=== PATIENT | female | born 1990 | race African-American/Black ===

== ENCOUNTER 2017-04-18 21:32 | Emergency (ER) | payer SELFPAY ==
[~2017-04-18] VITALS: Ht 167.6 cm; Wt 52.0 kg
[~2017-04-18 21:32] MED LIST: DIFL150T PO
[2017-04-18 21:33] VITALS: BP 118/81; PULSE 82; RESP 16; TEMP 98.9; O2SAT 100
[2017-04-18] MEDS ORDERED: SODIUM CHLOR 0.9% 1000 ML INJ 1,000 ML IV SCH (23:18)
[2017-04-18] MEDS ORDERED: SODIUM CHLORIDE 0.9% FLUSH 10 ML FLUSH IV FLUSH PRN (23:30)
[2017-04-18] MEDS ORDERED: methylPREDNISolone SOD SUCC 125 MG/2 ML VIAL IV PUSH ONE (23:30)
[2017-04-18] MEDS ORDERED: diphenhydrAMINE HCL 50 MG/ML VIAL IVP ONE (23:30)
[2017-04-18] MEDS ORDERED: FAMOTIDINE 20 MG/2 ML VIAL IV PUSH ONE (23:30)
--- NOTE | 2017-04-18 23:44 | PD ---
HPI Chief Complaint: Allergic/Adverse Reaction Time Seen by Provider: 23:14 Travel History International Travel<30 days: No Contact w/Intl Traveler<30days: No Traveled to known affect area: No History of Present Illness HPI Patient is a 27-year-old female presented to the emergency department for evaluation of possible allergic reaction. Patient reported that she ate chicken wings from a seafood restaurant last night and since that time she has had hives developing on her face, arms, legs and chest. She states it has gotten progressively worse and this evening she feels as if it is coming up onto her neck. She states when she coughs she can taste blood. She denies any dysphasia, shortness of breath, wheezing. She denies any known allergens. She denies any history of anaphylaxis. Symptom onset is gradual, there are no alleviating or exacerbating factors. [facility] Past Medical History Medical History: Denies Significant Hx Diminished Hearing: No Genitourinary: Yes (RECURRENT YEAST INFECTION APPROX. 1/MONTH) Tetanus Vaccination: Unknown Influenza Vaccination: No ?: Not : 0 Para: 0 Past Surgical History Surgical History: No Previous Surgery Social History Alcohol Use: No Tobacco Use: No Substance Use: No Allergies-Medications (Allergen,Severity, Reaction): Coded Allergies: No Known Allergies (Unverified , 06/06/14) Reported Meds & Prescriptions Reported Meds & Active Scripts Active Prednisone 50 Mg Tab 50 Mg PO DAILY 5 Days Ranitidine (Ranitidine HCl) 150 Mg Tab 150 Mg PO BID Review of Systems Except as stated in HPI: all other systems reviewed are Neg HENT: Positive: Sore Throat Skin: Positive Rash, Positive Itching, Positive Hives Physical Exam Narrative GENERAL: Well-developed, well-nourished, alert -[place] female. Presenting in no acute distress. SKIN: Warm and dry. Hives on face, arms, legs and chest. Lips are edematous HEAD: Atraumatic. Normocephalic. EYES: Pupils equal and round. No scleral icterus. No injection or drainage. ENT: No nasal bleeding or discharge. Mucous membranes pink and moist. Uvula is midline, airway is patent, mild erythema noted posterior pharynx. NECK: Trachea midline. No JVD. CARDIOVASCULAR: Regular rate and rhythm. RESPIRATORY: No accessory muscle use. Clear to auscultation. Breath sounds equal bilaterally. No stridor noted, no wheezes noted GASTROINTESTINAL: Abdomen soft, non-tender, nondistended. Hepatic and splenic margins not palpable. MUSCULOSKELETAL: Extremities without clubbing, cyanosis, or edema. No obvious deformities. NEUROLOGICAL: Awake and alert. No obvious cranial nerve deficits. Motor grossly within normal limits. Five out of 5 muscle strength in the arms and legs. Normal speech. PSYCHIATRIC: Appropriate mood and affect; insight and judgment normal. Data Data Last Documented VS Vital Signs Date Time Temp Pulse Resp B/P (MAP) Pulse Ox O2 Delivery O2 Flow Rate FiO2 04/19/17 01:22 04/19/17 00:30 99 Room Air 04/18/17 21:33 98.9 82 16 Orders Orders Basic Metabolic Panel (Bmp) (04/18/17 23:18) Complete Blood Count With Diff (04/18/17 23:18) Ecg Monitoring (04/18/17:18) Iv Access Insert/Monitor (04/18/17:18) Oximetry (04/18/17 23:18) Diphenhydramine Inj (Benadryl Inj) (04/18/17 23:30) Methylprednisolone So Succ Inj (Solumedr (04/18/17 23:30) Famotidine Inj (Pepcid Inj) (04/18/17 23:30) Sodium Chlor 0.9% 1000 Ml Inj (Ns 1000 M (04/18/17 23:18) Sodium Chloride 0.9% Flush (Ns Flush) (04/18/17 23:30) Group A Rapid Strep Screen (04/18/17 23:18) Influenzae A/B Antigen (04/18/17 23:18) Strep Culture (Group A) (04/18/17 23:40) Ed Discharge Order (04/19/17 01:21) Labs Laboratory Tests Test 04/19/17 00:01 White Blood Count 4.6 TH/MM3 Red Blood Count 4.67 MIL/MM3 Hemoglobin 14.0 GM/DL Hematocrit 40.9 % Mean Corpuscular Volume 87.7 FL Mean Corpuscular Hemoglobin 30.0 PG Mean Corpuscular Hemoglobin Concent 34.3 % Red Cell Distribution Width 12.1 % Platelet Count 191 TH/MM3 Mean Platelet Volume 7.9 FL Neutrophils (%) (Auto) 52.2 % Lymphocytes (%) (Auto) 37.5 % Monocytes (%) (Auto) 6.0 % Eosinophils (%) (Auto) 4.1 % Basophils (%) (Auto) 0.2 % Neutrophils # (Auto) 2.4 TH/MM3 Lymphocytes # (Auto) 1.7 TH/MM3 Monocytes # (Auto) 0.3 TH/MM3 Eosinophils # (Auto) 0.2 TH/MM3 Basophils # (Auto) 0.0 TH/MM3 CBC Comment DIFF FINAL Differential Comment Blood Urea Nitrogen 12 MG/DL Creatinine 0.90 MG/DL Random Glucose 83 MG/DL Calcium Level 8.9 MG/DL Sodium Level 140 MEQ/L Potassium Level 3.9 MEQ/L Chloride Level 107 MEQ/L Carbon Dioxide Level 27.6 MEQ/L Anion Gap 5 MEQ/L Estimat Glomerular Filtration Rate 92 ML/MIN MDM Medical Decision Making Medical Screen Exam Complete: Yes Emergency Medical Condition: Yes Interpretation(s) Vital Signs Date Time Temp Pulse Resp B/P (MAP) Pulse Ox O2 Delivery O2 Flow Rate FiO2 04/18/17 21:33 98.9 82 16 118/81 (93) 100 Room Air Differential Diagnosis Allergic reaction versus anaphylaxis versus dermatitis versus other Narrative Course Patient's 27-year-old female that presented to the emergency room for evaluation of a possible allergic reaction. On exam patient was noted to have hives generalized on her body. Her airway is patent although there is mild erythema to the posterior pharynx. Patient's vital signs are stable, she is well oxygenated on room air. Labs and medications ordered and pending. Patient was also seen and evaluated by my attending physician. Patient was reassessed approximately an hour and a half after medication administration and was monitored in the emergency department. Patient's airway remained patent, her vital signs are stable. Upon reassessment the hives had improved significantly on her face and began to improve on her legs. Patient was instructed regarding an EpiPen and how to use it. She was advised on medications that were being prescribed to her. She was encouraged to call 911 and return to emergency department for any new or worsening symptoms. She verbalized understanding of these instructions. Patient stable for discharge. Diagnosis Primary Impression: Allergic reaction Qualified Codes: T78.40XA - Allergy, unspecified, initial encounter Referrals: Primary Care Physician Patient Instructions: Anaphylaxis (ED), General Allergic Reaction (ED), General Instructions Additional Instructions: Return to the emergency department immediately for any new or worsening symptoms as discussed Take medications as prescribed Take [id number] Benadryl as needed and as directed for itching Follow-up with your primary doctor Med/Other Pt SpecificInfo: Prescription(s) given Scripts Epinephrine Inj (Epipen 2-Wolf Inj) 0.3 Mg/0.3 Ml Pfpen 0.3 MG IM ONCE Y for ALLERGIC REACTION, #1 PACK 0 Refills Prov: Suzi Huffman 04/19/17 Diphenhydramine (Diphenhydramine) 25 Mg Tab 50 MG PO Q6H Y for ALLERGIES for 10 Days, #80 TAB 0 Refills Prov: Suzi Huffman 04/19/17 Prednisone (Prednisone) 50 Mg Tab 50 MG PO DAILY for 5 Days, #5 TAB 0 Refills Prov: Suzi Huffman 04/19/17 Ranitidine (Ranitidine) 150 Mg Tab 150 MG PO BID for Heartburn Management, #60 TAB 0 Refills Prov: Suzi Huffman 04/19/17 Disposition: 01 DISCHARGE HOME Condition: Stable Suzi Huffman Apr 18, 2017 23:44
[2017-04-19 00:20] LABS: AUTOMATED NEUTROPHIL # 2.4 TH/MM3 (1.8-7.7); BASOPHIL % 0.2 % (0.0-2.0); EOSINOPHIL # 0.2 TH/MM3 (0-0.4); EOSINOPHIL % 4.1 % (0.0-4.0); HEMATOCRIT 40.9 % (35.0-46.0); LYMPH % 37.5 % (9.0-44.0); LYMPHOCYTE # 1.7 TH/MM3 (1.0-4.8); MEAN CELL VOLUME 87.7 FL (80.0-100.0); MEAN CORPUSCULAR HGB CONC 34.3 % (32.0-36.0); MEAN PLATELET VOLUME 7.9 FL (7.0-11.0); MONOCYTE # 0.3 TH/MM3 (0-0.9); NEUT % 52.2 % (16.0-70.0); PLATELET COUNT 191 TH/MM3 (150-450); RED BLOOD COUNT 4.67 MIL/MM3 (4.00-5.30); RED CELL DISTRIBUTION WIDTH 12.1 % (11.6-17.2); WHITE BLOOD COUNT 4.6 TH/MM3 (4.0-11.0)
[2017-04-19 00:30] VITALS: O2SAT 99
[2017-04-19 01:11] LABS: BICARBONATE 27.6 MEQ/L (21.0-32.0); CALCIUM 8.9 MG/DL (8.5-10.1); CREATININE 0.9 MG/DL (0.50-1.00)
[2017-04-19] MEDS ORDERED: PRED50 PO (01:25)
[2017-04-19] MEDS ORDERED: DIPH25TA2 PO (01:25)
[2017-04-19] MEDS ORDERED: RANI150T PO (01:25)
[2017-04-19] MEDS ORDERED: EPIP0.3I IM (01:29)
== END 2017-04-19 01:35 | disposition home or self-care (01) ==
LOC: NEPD 21:32
DX: T78.40XA Allergy, unspecified, initial encounter (principal); L50.9 Urticaria, unspecified; R05 Cough; Z79.899 Other long term (current) drug therapy
CPT/HCPCS: 80048; 85025; 87081; 87804; 87880; 96361; 96374; 96375; 99284; J1200; J2930; J7030